=== PATIENT | female | born 1975 | race Caucasian/White ===

== ENCOUNTER 2016-12-26 08:08 | Observation (INO) ==
[2016-12-26] MEDS ORDERED: Naloxone 0.4 MG/ML INJ IVP PRN ×2 (10:06→17:49)
[2016-12-26] MEDS ORDERED: Ondansetron 4 MG/2 ML VIAL IVP PRN (10:06)
[2016-12-26] MEDS ORDERED: cefOXitin 2,000 MG in D5% in Water (Mini-Bag+) 100 ML IVPB ONE (10:08)
[2016-12-26] MEDS ORDERED: *HR* OxyCODONE/APAP 5/325 TABLET PO PRN (10:09)
[2016-12-26] MEDS ORDERED: *HR* HYDROmorphone (PF) 1 MG/ML SYRINGE IVP PRN ×3 (10:09→17:49)
[2016-12-26] MEDS ORDERED: 0.9 % Sodium Chloride 1,000 ML IVC SCH (10:15)
--- NOTE | 2016-12-26 10:17 | Event Note ---
Date of Encounter: 12/26/16 Time of Encounter: 10:16 Patient is a direct admission for symptomatic cholelithiasis. Please see ECW History and Physical. Copy placed in the patients folder at the desk and a copy placed to be scanned into medical records.
[2016-12-26 10:50] LABS: Basophils # 0.1 K/mcL (0.0-0.2); Basophils % 0.8 %; Eosinophils # 0.2 K/mcL (0.0-0.6); Hematocrit 37.6 % (35.3-44.9); Hemoglobin 12.1 g/dL (11.5-15.4); Immature Granulocytes % 0.2 % (0-4); Immature Platelets 1.2 % (1.1-6.1); Lymphocytes # 2.3 K/mcL (0.6-4.6); Lymphocytes % 36.9 %; Mean Corpuscular HGB Conc 32.2 g/dL (31.6-35.5); Mean Corpuscular Hemoglobin 27.7 pg (28.0-33.3); Mean Platelet Volume 8.8 fL (9.4-12.4); Monocytes # 0.4 K/mcL (0.0-1.3); Monocytes % 6.3 %; Neutrophils # 3.3 K/mcL (1.6-8.9); Platelet Count 326 K/mcL (140-400); Red Blood Count 4.37 M/mcL (3.82-4.97); Red Cell Distribution Width 13.7 % (11.5-14.5); Segmented Neutrophils % 52.8 %
[2016-12-26 11:10] LABS: Alanine Aminotransferase 67 Units/L (0-55); Albumin 3.6 g/dL (3.5-5.0); Albumin/Globulin Ratio 1.1 (1.1-2.2); Alkaline Phosphatase 77 Units/L (38-126); Aspartate Amino Transferase 21 Units/L (5-34); BUN/Creatinine Ratio 10 (6-26); Bilirubin,Total 0.6 mg/dL (0.2-1.2); Blood Urea Nitrogen 7 mg/dL (7-20); Calcium 9.3 mg/dL (8.6-10.8); Carbon Dioxide 26 mEq/L (19-29); Chloride 106 mEq/L (98-109); Globulin 3.3 g/dL (2.4-3.5); Glucose 83 mg/dL (70-99); Osmolality,Calculated 285 (280-300); Potassium 4.1 mEq/L (3.5-4.5); Sodium 139 mEq/L (136-145); Total Protein 6.9 g/dL (6.0-8.3); eGFR For African Americans > 60 (> 60); eGFR For Non-African Americans > 60 (> 60)
[2016-12-26] MEDS ORDERED: *HR* FentaNYL (PF) 100 MCG/2 ML VIAL ONE ×2 (15:34→15:58)
[2016-12-26] MEDS ORDERED: *HR* Succinylcholine 200 MG/10 ML VIAL IVP ONE (15:34)
[2016-12-26] MEDS ORDERED: Neostigmine Methylsulfate 3 MG/3 ML SYRINGE ONE (15:34)
[2016-12-26] MEDS ORDERED: *HR* Rocuronium Bromide 50 MG/5 ML VIAL ONE (15:34)
[2016-12-26] MEDS ORDERED: Dexamethasone 4 MG/ML VIAL ONE (15:34)
[2016-12-26] MEDS ORDERED: *HR* Midazolam HCl 2 MG/2 ML VIAL ONE (15:34)
[2016-12-26] MEDS ORDERED: Lidocaine -MPF 2% 2 ML VIAL ONE (15:34)
[2016-12-26] MEDS ORDERED: Lidocaine -MPF 4% 5 ML AMPUL ONE (15:34)
[2016-12-26] MEDS ORDERED: *HR* Propofol 200 MG/20 ML VIAL IVP ONE (15:34)
[2016-12-26] MEDS ORDERED: Ondansetron 4 MG/2 ML VIAL ONE (15:34)
--- NOTE | 2016-12-26 15:34 | Anesthesia Evaluation PreOp ---
Date of Encounter: 12/26/16 Time of Encounter: 15:31 - Past History Planned Operation: lap rufino Cardiac History: Denies any Significant Hx Pulmonary History: Denies Any Significant HX ECHO TECHNOLOGIST History: Denies Any Significant HX Other Medical History: Denies Any Significant HX Anesthesia History: No Prior Anesthetic Complications, Past Anesthesia Alcohol Use: none Drug use: none Medications and Allergies HYDROcodone/Acet 5/325 mg [[place] 5-325 mg] 1 tab PO Q4H PRN #12 tab 12/20/16 [Rx ] Ondansetron HCl [Zofran] 4 mg PO Q6H PRN #10 tablet 12/20/16 [Rx] Clotrimazole/Betamethasone Dip [Lotrisone Cream] 1 appl TP BID PRN 12/26/16 [ History] Ergocalciferol (VITAMIN D2) [Vitamin D2] 50,000 unit PO QWEEK 12/26/16 [History] Levonorgestrel [Mirena] 52 mg IY AD 12/26/16 [History] Allergies aspirin [ASA] Allergy (Verified 12/26/16 10:21) Anaphylaxis - Meds/Allergy Pre-op Review Medications Reviewed: Yes Allergies Reviewed: No Beta Blockers on Current Med List: No Anesthesia Results - Labs 12/26/16 10:20 12/26/16 10:20 Anesthesia Exam Selected Entries 12/26/16 11:28 Temperature 97.7 F Pulse Rate 59 Respiratory Rate 16 Blood Pressure 125/79 O2 Sat by Pulse Oximetry 98 Weight: 100kg NPO (# of Hours): 8 Pain Scale: 0 Pain Scale Used: Numeric (1 - 10) - HEENT Pupil (Motor): EOMI Mallampati: II Teeth: Normal Oral Opening: Greater than 3 - ECHO TECHNOLOGIST LOC: Oriented ECHO TECHNOLOGIST Motor: Normal RUE, Normal LUE, Normal RLE, Normal LLE, Normal Face ECHO TECHNOLOGIST Sensory: Normal: RUE, LUE, RLE, LLE, Face - Cardiac Rhythm: Regular Murmur: None - Pulmonary Breath Sounds: bilateral Clear Respiratory Effort: Symmetrical Anesthesia Assess/Plan ASA Score: 2 (obese) Modified Mike Scale for Level of Consciousness: Cooperative, oriented, and tranquil Monitoring Plan: Standard Monitors Recovery Plan: PACU (Discussed risks of GA, questions answered, wants to keep new ear piercing in place and she signed release.)
[2016-12-26] MEDS ORDERED: *HR* Promethazine 25 MG/ML VIAL IVP PRN ×2 (15:37→17:49)
--- NOTE | 2016-12-26 15:59 | Operative Note ---
Date of procedure: 12/26/16 Pre-op diagnosis: Symptomatic cholelithiasis Post-op diagnosis: same Procedure: Laparoscopic cholecystectomy with cholangiogram Anesthesia: KERI Surgeon: Salazar Robbins Estimated blood loss (cc): 5 Specimen: Gallbladder Condition: stable Disposition: same day Procedure in Detail: After informed consent this patient was taken the operating room placed supine position. After adequate sedation anesthesia the abdomen was prepped and draped. A proper timeout was performed. Two towel clamps are placed at the umbilicus and a Veres needle was inserted into the abdomen. A 5 mm incision was made at the umbilicus. A 12 mm incision was made in the subxiphoid region. Two 5 mm incisions were made in the right upper quadrant that were 4 finger breadths and 6 finger breadths below the costal margin. The gallbladder was identified, retracted anteriorly and cephalad, and the infundibulum was skeletonized. The cystic duct was easily identified and was dissected free. A ductotomy was created in the cystic duct. A taut catheter was placed within the cystic duct and clipped. A cholangiogram was performed. Contrast filled the cystic duct, common hepatic duct, hepatic radicles, and the distal common bile duct. There was flow of contrast into the duodenum. Once this was confirmed the clippers removed, the taut catheter was removed as well, and the cystic duct was clipped distally. The cystic duct was then transected with scissors. The gallbladder was resected off the liver surface. There was excellent hemostasis. The gallbladder was then retrieved through the 12 mm cannula site. At this point the abdomen was suctioned dry and the pneumoperitoneum was then evacuated. All ports were removed. The 12 mm cannula site was closed with an 0 Vicryl suture in [id number] fashion. The skin was closed with 4-0 Vicryl suture. Dermabond was placed as well. All instrument counts and needle counts are correct in the operation. The patient tolerated the procedure well and was transferred to the PACU in stable condition.
--- NOTE | 2016-12-26 16:42 | Discharge Summary ---
Date of Encounter: 12/26/16 Time of Encounter: 16:39 - Discharge Diagnosis (1) Symptomatic cholelithiasis Priority: Primary Status: Resolved - Discharge Medications Prescriptions: OxyCODONE/APAP 5/325 [Percocet 5/325 MG] 1 each PO Q6HR PRN #30 tablet PRN Reason: Moderate Pain Docusate [Colace] 100 mg PO BID #30 capsule Home Medications: Ondansetron HCl [Zofran] 4 mg PO Q6H PRN #10 tablet 12/20/16 [Rx] Clotrimazole/Betamethasone Dip [Lotrisone Cream] 1 appl TP BID PRN 12/26/16 [ History] Docusate [Colace] 100 mg PO BID #30 capsule 12/26/16 [Rx] Ergocalciferol (VITAMIN D2) [Vitamin D2] 50,000 unit PO QWEEK 12/26/16 [History] Levonorgestrel [Mirena] 52 mg IY AD 12/26/16 [History] OxyCODONE/APAP 5/325 [Percocet 5/325 MG] 1 each PO Q6HR PRN #30 tablet 12/26/16 [Rx] Allergies/Adverse Reactions: Allergies aspirin [ASA] Allergy (Verified 12/26/16 10:21) Anaphylaxis General Surgery Exam Initial Vital Signs Temp Pulse Resp BP Pulse Ox 97.7 F 59 16 125/79 98 12/26/16 11:28 12/26/16 11:28 12/26/16 11:28 12/26/16 11:28 12/26/16 11:28 Date of admission: 12/26/16 09:31 Primary care physician: Angelica Guzman, Discharging clinician: Salazar Rios) Anticipated date of discharge: 12/26/16 - Patient Status Disposition: Home, Self-Care Condition: Good Functional capacity at discharge: independent ambulation Overall status at discharge: patient is progressing back to baseline - Discharge Instructions Follow Up With: Angelica Guzman MD [Primary Care Provider] - Kelly Rios CNP [Advanced Practice Nurse] - 01/13/17 10:30 am (Surgery follow-up) Additional Instructions: #1 may shower, no tub bath for 2 weeks #2 wash incisions with soap and water and pat dry daily #3 no lifting, pushing, pulling more than 15 pounds for the next 2 weeks #4 no driving until off narcotics for 24 hours and able to safely react in the car #5 may climb stairs - Diet and Activity Activity: other (See additional instructions above) Diet: advance to your usual diet - Hospital Course Hospital course: Ms. Donnelly is a 41 year old female presented to the hospital for symptomatic cholelithiasis. She has been seen and evaluated by Dr. Robbins in the outpatient surgical office. She was taken to the operating room for a laparoscopic cholecystectomy. We will begin discharge planning to home when the patient meets discharge criteria including vital signs are stable and afebrile, tolerating liquids without nausea or vomiting, pain is well-controlled, voiding and ambulating without difficulty. Pain for outpatient follow-up in the next 10 -14 days. - Time Spent with Patient Total time spent providing and/or coordinating discharge services: Less than 30 minutes Labs on day of discharge: Labs from last 24 hours 12/26/16 12/26/16 12/26/16 10:20 10:20 10:20 WBC 6.3 RBC 4.37 Hgb 12.1 D Hct 37.6 MCV 86.0 MCH 27.7 L MCHC 32.2 RDW 13.7 Plt Count 326 MPV 8.8 L Immature Gran % 0.2 Seg Neutrophils % 52.8 Lymphocytes % 36.9 Monocytes % 6.3 Eosinophils % 3.0 Basophils % 0.8 Neutrophils # 3.3 Lymphocytes # 2.3 Monocytes # 0.4 Eosinophils # 0.2 Basophils # 0.1 Immature Plt Fraction 1.2 Sodium 139 Potassium 4.1 Chloride 106 Carbon Dioxide 26 BUN 7 Creatinine 0.72 Est GFR ( Amer) > 60 Est GFR (Non-Af Amer) > 60 BUN/Creatinine Ratio 10 Glucose 83 Calculated Osmolality 285 Calcium 9.3 Total Bilirubin 0.6 AST 21 ALT 67 H Alkaline Phosphatase 77 Serum Total Protein 6.9 Albumin 3.6 Globulin 3.3 Albumin/Globulin Ratio 1.1 Serum , Qual Negative - Impressions ITS Impressions Cholangiogram,Operative 12/26/16 16:10 IMPRESSION: Choledocholithiasis in the central common bile duct. No complete obstruction, as contrast is in the proximal small bowel. Results of this examination are to be communicated to the operating room by the chief nuclear medicine technologist, Braydon, at the time of this dictation. D/ / Caleb Akhtar MD / Caleb Akhtar MD Interpreting Provider: Caleb Akhtar MD - Attending Attestation I examined this patient and my medical decision-making was reviewed with the PRINCIPAL EXAMINER/PA/Advanced Practice Nurse/Resident Physician. I agree with the documented findings, disposition and treatment plan as described except to the extent set forth below.
[2016-12-26] MEDS: *HR* HYDROmorphone (PF) 1 MG/ML SYRINGE IVP PRN ×3 (16:51→17:12)
[2016-12-26] MEDS ORDERED: 0.9 % Sodium Chloride 500 ML IVC SCH (17:49)
[2016-12-26] MEDS: Ondansetron 4 MG/2 ML VIAL IVP PRN (19:15)
[2016-12-26] MEDS: *HR* OxyCODONE/APAP 5/325 TABLET PO PRN (19:16)
[2016-12-27] MEDS: *HR* OxyCODONE/APAP 5/325 TABLET PO PRN (01:22)
[2016-12-27] MEDS: Ondansetron 4 MG/2 ML VIAL IVP PRN (01:22)
[2016-12-27 04:39] VITALS: BP 116/71
== END 2016-12-27 04:55 | disposition home or self-care (01) ==
LOC: 3ANU
PROVIDERS: ADMIT Nurse Practitioner Family; ATTEND Surgery